=== PATIENT | male | born 1985 | race Hispanic/Latino ===

== ENCOUNTER 2019-05-07 20:18 | Emergency (ER) | payer OTHER, SELFPAY ==
[2019-05-07] MEDS ORDERED: Ketorolac Tromethamine 60 MG/2 ML VIAL ONE (20:38)
[2019-05-07] MEDS ORDERED: Bupivacaine 0.5% 10 ML VIAL ONE (20:38)
== END 2019-05-07 21:00 | disposition home or self-care (01) ==
LOC: SCSER 20:18
DX: K03.81 Cracked tooth (principal); F17.210 Nicotine dependence, cigarettes, uncomplicated
CPT/HCPCS: 64400; 96372; J1885; J3490